=== PATIENT | female | born 1940 | race Caucasian/White ===

== ENCOUNTER 2016-06-23 10:56 | Emergency (ER) | payer OTHER ==
[~2016-06-23] VITALS: Ht 167.6 cm; Wt 72.7 kg
[~2016-06-23 10:56] MED LIST: ALPRAZOLAM0.25 M2 PO; CIPRO500 MG PO; COUMADIN5 MG PO; DAILY VITAMIN1 EAC8 PO; Ecotrin PO; FISH OIL 1,0001 EAC7 PO; FLOMAX0.4 MG PO; LOVENOX80 MG/0.8 SC; NO HOME MEDICATIONS; NORCO 5/3251 TABLET PO; SERTRALINE HCL50 MG PO; SYSTANE 0.3-0.1 EACH BOTH EYES; XANAX0.25 MG PO; Xanax PO; ZOFRAN ODT4 MG PO; ZOFRAN ODT8 MG PO; Zocor PO
[2016-06-23 11:43] LABS: HEMATOCRIT 42.5 % (36.0-46.0); MCH 30.6 PG (29.0-34.0); MCHC 34.6 G/DL (30.0-36.0); MCV 88.4 FL (83-99); MEAN PLAT.VOLUME 9.9 uM^3 (9.5-12.4); PLATELET COUNT 274 K/uL (156-360); RBC DIS.WIDTH-CV 12.9 % (11.8-14.6); RBC DIS.WIDTH-SD 41.4 % (39-53); RED BLOOD COUNT 4.81 M/uL (3.80-5.20)
[2016-06-23 12:04] LABS: WHITE BLOOD COUNT 9.4 K/uL (4.1-10.2)
[2016-06-23 12:23] LABS: CHLORIDE 108 mEq/L (99-109); POTASSIUM 3.7 mEq/L (3.7-5.4); SODIUM 142 mEq/L (136-147)
[2016-06-23 12:26] LABS: ANION GAP 14 MEQ/L (2-14); GLUCOSE 135 mg/dL (70-99)
[2016-06-23 12:28] LABS: GFR ESTIMATE (CALCULATED) 52 mL/min/
[2016-06-23 12:29] LABS: UREA NITROGEN (BUN) 18 mg/dL (9-23)
[2016-06-23 14:36] LABS: ADD MIUA? YES; BILIRUBIN NEGATIVE; BLOOD NEGATIVE; COLOR YELLOW ((YELLOW)); GLUCOSE (STRIP) NEGATIVE; KETONES TRACE; LEUKOCYTES TRACE; NITRITE NEGATIVE; PROTEIN (STRIP) NEGATIVE; SPECIFIC GRAVITY 1.024 (1.000-1.030); UROBILINOGEN 0.2 MG/DL (0.2-1.0)
[2016-06-23 14:57] LABS: BACTERIA RARE; CASTS NONE SEEN /LPF; CRYSTALS NONE SEEN; EPITHELIAL CELLS 1+; MUCUS NONE SEEN; RED BLOOD CELLS NONE SEEN /HPF (0-5); UCUL ADDED? NO; WHITE BLOOD CELLS RARE /HPF (0-5)
[2016-06-23] MEDS ORDERED: KEFLEX500 MG PO (16:52)
[2016-06-23] MEDS ORDERED: PERCOCET 5/31 TABLET PO (17:04)
[2016-06-23 17:09] VITALS: BP 145/93
== END 2016-06-23 17:10 | disposition home or self-care (01) ==
LOC: EME 10:56
DX: N39.0 Urinary tract infection, site not specified (principal); Z87.442 Personal history of urinary calculi
CPT/HCPCS: 74176; 80048; 81003; 85027; 87086; 99281; 99285; J1170; J1885; J2405; J7030

== ENCOUNTER → 2016-10-04 | Outpatient (CLI) | payer MEDICARE, OTHER ==
[~2016-10-04] MED LIST changes: +KEFLEX500 MG PO; +PERCOCET 5/31 TABLET PO
== END | disposition home or self-care (01) ==
LOC: CDC 11:15
DX: I25.2 Old myocardial infarction (principal); M75.121 Complete rotator cuff tear or rupture of right shoulder, not specified as traumatic; M75.41 Impingement syndrome of right shoulder
CPT/HCPCS: 93000

== ENCOUNTER 2016-10-20 10:15 | Observation (INO) | payer OTHER ==
[~2016-10-20] VITALS: Ht 167.6 cm; Wt 74.1 kg
[2016-10-20 11:00] LABS: BASOPHIL COUNT 0.1 K/uL (0-0.1); EOSINOPHIL (%) 1.1 % (0-5); EOSINOPHIL COUNT 0.1 K/uL (0-0.3); HEMATOCRIT 41.9 % (36.0-46.0); IMMATURE GRANULOCYTE (%) 0.3 % (0.0-0.7); INSTRUMENT ABS NEUTROPHIL CT 4.5 K/uL; LYMPHOCYTE COUNT 1.1 K/uL (1.0-2.8); MCH 31.1 PG (29.0-34.0); MCHC 33.7 G/DL (30.0-36.0); MCV 92.5 FL (83-99); MEAN PLAT.VOLUME 9.8 uM^3 (9.5-12.4); MONOCYTE (%) 7.6 % (3-12); MONOCYTE COUNT 0.5 K/uL (0-0.8); NEUTROPHIL (%) 72.2 % (45-76); NEUTROPHIL COUNT 4.5 K/uL (1.8-6.4); PLATELET COUNT 231 K/uL (156-360); RBC DIS.WIDTH-CV 11.8 % (11.8-14.6); RBC DIS.WIDTH-SD 39.9 % (39-53); RED BLOOD COUNT 4.53 M/uL (3.80-5.20)
[2016-10-20 11:06] LABS: WHITE BLOOD COUNT 6.2 K/uL (4.1-10.2)
[2016-10-20 11:10] LABS: PROTHROMBIN TIME 10.2 (9.2-11.2); PTT 26.3 (25-32)
[2016-10-20 11:11] LABS: CHLORIDE 110 mEq/L (99-109); POTASSIUM 4.2 mEq/L (3.7-5.4); SODIUM 145 mEq/L (136-147)
[2016-10-20 11:12] LABS: GLUCOSE 109 mg/dL (70-99)
[2016-10-20 11:14] LABS: ANION GAP 12 MEQ/L (2-14)
[2016-10-20 11:16] LABS: GFR ESTIMATE (CALCULATED) > 59 mL/min/
[2016-10-20 11:17] LABS: UREA NITROGEN (BUN) 15 mg/dL (9-23)
[2016-10-20 11:23] LABS: TROP-I INTERPRETATION NEGATIVE; TROPONIN-I < 0.01 ng/mL (0.0-0.30)
[2016-10-20] MEDS ORDERED: SERTRALINE HCL25 MG PO (13:58)
[2016-10-20] MEDS ORDERED: MOBIC15 MG PO (13:59)
[2016-10-20] MEDS ORDERED: PROTONIX40 MG PO (13:59)
[2016-10-20] MEDS ORDERED: TYLENOL PM1 CAPLET PO (14:00)
[2016-10-20 16:48] LABS: ADD MIUA? NO; BILIRUBIN NEGATIVE; BLOOD NEGATIVE; COLOR STRAW ((YELLOW)); GLUCOSE (STRIP) NEGATIVE; KETONES NEGATIVE; LEUKOCYTES NEGATIVE; NITRITE NEGATIVE; PROTEIN (STRIP) NEGATIVE; SPECIFIC GRAVITY 1.026 (1.000-1.030); UCUL ADDED? NO; UROBILINOGEN 0.2 MG/DL (0.2-1.0)
[2016-10-20 17:32] LABS: LIPASE 137 U/L (1.0-51.0)
[2016-10-20 18:12] LABS: TROP-I INTERPRETATION NEGATIVE; TROPONIN-I < 0.01 ng/mL (0.0-0.30)
[2016-10-20 18:51] VITALS: BP 144/79
[2016-10-21 00:18] VITALS: BP 132/69
[2016-10-21 04:24] VITALS: BP 133/74
[2016-10-21 06:29] LABS: HEMATOCRIT 38.2 % (36.0-46.0); MCH 30.9 PG (29.0-34.0); MCHC 33.2 G/DL (30.0-36.0); MCV 92.9 FL (83-99); MEAN PLAT.VOLUME 9.9 uM^3 (9.5-12.4); PLATELET COUNT 232 K/uL (156-360); RBC DIS.WIDTH-CV 11.9 % (11.8-14.6); RBC DIS.WIDTH-SD 40.3 % (39-53); RED BLOOD COUNT 4.11 M/uL (3.80-5.20); WHITE BLOOD COUNT 6.4 K/uL (4.1-10.2)
[2016-10-21 06:53] LABS: ALKALINE PHOSPHATASE 48 IU/L (3-129); ANION GAP 9 MEQ/L (2-14); CHLORIDE 106 MEQ/L (99-109); GFR ESTIMATE (CALCULATED) > 59 mL/min/; GLUCOSE 113 mg/dL (70-99); POTASSIUM 3.5 MEQ/L (3.7-5.4); SAMPLE HEMOLYSIS CHECK 0; SAMPLE ICTERIC CHECK 0; SAMPLE LIPEMIA CHECK 0; SODIUM 140 MEQ/L (136-147); TOTAL BILIRUBIN 0.7 MG/DL (0.0-1.0); UREA NITROGEN (BUN) 12 mg/dL (9-23)
[2016-10-21 09:57] LABS: LIPASE 37 U/L (1.0-51.0)
[2016-10-21 11:32] VITALS: BP 135/75
== END 2016-10-21 14:05 | disposition home or self-care (01) ==
LOC: EME → EDBD 10:15 → EME 10:15 → EDOF 14:37 → 3EAST 14:37 → EDOF 14:37 → 3EAST 18:17
PROVIDERS: Emergency Medicine; Physician Assistant Medical
DX: R10.9 Unspecified abdominal pain (principal); N20.0 Calculus of kidney; J98.11 Atelectasis; E87.6 Hypokalemia; J98.6 Disorders of diaphragm; R74.8 Abnormal levels of other serum enzymes; R09.02 Hypoxemia; M19.90 Unspecified osteoarthritis, unspecified site; I10 Essential (primary) hypertension; F41.9 Anxiety disorder, unspecified; Z86.711 Personal history of pulmonary embolism; Z86.718 Personal history of other venous thrombosis and embolism
CPT/HCPCS: 71010; 71275; 74176; 80048; 80053; 81003; 83690; 84484; 85025; 85027; 85610; 85730; 93005; 99281; 99285; G0378; J1650; J2270; J2405; J7030

== ENCOUNTER → 2017-10-11 | Outpatient (CLI) | payer OTHER ==
[~2017-10-11] MED LIST changes: +ALPRAZOLAM0.25 M1 PO; +MOBIC15 MG PO; +PROTONIX40 MG PO; +TYLENOL PM1 CAPLET PO; +ZOLOFT50 MG PO
== END | disposition home or self-care (01) ==
DX: M17.11 Unilateral primary osteoarthritis, right knee (principal); R26.2 Difficulty in walking, not elsewhere classified; M25.561 Pain in right knee; M25.661 Stiffness of right knee, not elsewhere classified; M62.81 Muscle weakness (generalized); Z74.1 Need for assistance with personal care
CPT/HCPCS: 97161 GP; 97165 GO; 97530 GP; 97535 GO; G8978 GP; G8979 GP; G8980 GP; G8987 GO; G8988 GO; G8989 GO

== ENCOUNTER 2017-10-16 21:15 | Inpatient (IN) | payer OTHER ==
[~2017-10-16] VITALS: Ht 162.6 cm; Wt 78.4 kg
[2017-10-17 09:50] VITALS: BP 139/65
[2017-10-17 14:24] LABS: HEMATOCRIT 42.4 % (36.0-46.0); MCH 30.3 PG (29.0-34.0); MCV 91.8 FL (83-99); PLATELET COUNT 221 K/uL (156-360); RBC DIS.WIDTH-CV 12.1 % (11.8-14.6); RBC DIS.WIDTH-SD 40.6 % (39-53); RED BLOOD COUNT 4.62 M/uL (3.80-5.20); WHITE BLOOD COUNT 5.3 K/uL (4.1-10.2)
[2017-10-17 15:55] VITALS: BP 141/78
[2017-10-17 20:14] VITALS: BP 138/79
[2017-10-18 00:07] VITALS: BP 139/82
[2017-10-18 03:52] VITALS: BP 166/87
[2017-10-18 06:40] LABS: HEMATOCRIT 40.6 % (36.0-46.0); HEMOGLOBIN 13.8 G/DL (11.9-15.5); MCV 88.6 FL (83-99)
[2017-10-18 07:02] LABS: CHLORIDE 102 MEQ/L (99-109); CREATININE 0.9 MG/DL (0.6-1.3); GFR ESTIMATE (CALCULATED) > 59 mL/min/; GLUCOSE 153 mg/dL (70-99); POTASSIUM 3.9 MEQ/L (3.7-5.4); SODIUM 136 MEQ/L (136-147); UREA NITROGEN (BUN) 15 mg/dL (9-23)
[2017-10-18 08:13] VITALS: BP 170/88
[2017-10-18 12:09] VITALS: BP 143/68
[2017-10-18 15:28] VITALS: BP 157/74
[2017-10-18 23:25] VITALS: BP 130/78
[2017-10-19 06:47] LABS: HEMATOCRIT 37.5 % (36.0-46.0); HEMOGLOBIN 12.3 G/DL (11.9-15.5); MCV 91.2 FL (83-99)
[2017-10-19 07:48] VITALS: BP 139/76
[2017-10-19] MEDS ORDERED: ENDOCET 5-3251 EACH PO (09:01)
[2017-10-19] MEDS ORDERED: ELIQUIS2.5 MG PO (09:01)
[2017-10-19 11:57] VITALS: BP 137/61
[2017-10-19 16:01] VITALS: BP 124/69
== END 2017-10-19 16:59 | disposition home or self-care (01) | DRG 470 ==
LOC: ENRESERV 21:15 → 2SOUTH 10-17 08:47 → ENRESERV 10-17 14:18 → 3EAST 10-17 15:30 → 2SOUTH 10-17 16:23 → 3EAST 10-19 16:59
PROVIDERS: Orthopaedic Surgery
PROC: 0SRC0J9 Replacement of Right Knee Joint with Synthetic Substitute, Cemented, Open Approach (ICD-10-PCS; principal; 2017-10-17)
DX: M17.11 Unilateral primary osteoarthritis, right knee (principal); Z86.711 Personal history of pulmonary embolism; F32.9 Major depressive disorder, single episode, unspecified; F41.9 Anxiety disorder, unspecified
CPT/HCPCS: 73560; 80048; 85014; 85018; 85027; 97530 GO; C1713; J0690; J1170; J1885; J2250; J2405; J2795; J7050; S0020